=== PATIENT | female | born 1965 | race Two or more races ===

== ENCOUNTER 2022-08-09 19:48 | Emergency (ER) | payer OTHER ==
[~2022-08-09] VITALS: Ht 160 cm; Wt 61.1 kg
[2022-08-09] MEDS ORDERED: HYDROcodone-ACET 5/325MG TAB PO ONE (23:45)
[2022-08-09] MEDS ORDERED: HYDR-4902 PO (23:57)
[2022-08-09] MEDS ORDERED: AMOX500C2 PO (23:57)
[2022-08-10 00:05] VITALS: BP 153/86
== END 2022-08-10 00:06 | disposition home or self-care (01) ==
LOC: ER 19:52
DX: K05.10 Chronic gingivitis, plaque induced (principal); K02.9 Dental caries, unspecified